=== PATIENT | male | born 1975 | race Caucasian/White ===

== ENCOUNTER 2017-01-13 09:59 | Emergency (ER) | payer BC ==
[2017-01-13 10:19] VITALS: BP 125/73
--- NOTE | 2017-01-13 10:32 | UC ---
Lower Extremity/Ankle HPI - HPI Summary HPI Summary: On Monday he was playing soccer and push off with his right leg got pain and leg ---currently leg is swelling more calf is more tender ankle is bruised and tender - History of Current Complaint Chief Complaint: UCLowerExtremity Stated Complaint: RIGHT LEG/ANKLE COMPLAINT Time Seen by Provider: 01/13/17 10:26 Hx Obtained From: Patient Onset/Duration: Sudden Onset, Lasting Days - 4, Still Present Severity Initially: Moderate Severity Currently: Moderate Pain Intensity: 6 Pain Scale Used: 0-10 Numeric Aggravating Factor(s): Ambulation Alleviating Factor(s): Rest, Ice Able to Bear Weight: Yes - with pain - Allergies/Home Medications Allergies/Adverse Reactions: Allergies Allergy/AdvReac Type Severity Reaction Status Date / Time No Known Allergies Allergy Verified 01/09/16 13:13 Home Medications: Home Medications Ibuprofen TAB* [Advil TAB*] 2 tab PO Q6HR PRN 01/13/17 [History Confirmed ] PMH/Surg Hx/FS Hx/Imm Hx Previously Healthy: Yes Endocrine History Of: Denies: Diabetes, Thyroid Disease Cardiovascular History Of: Denies: Cardiac Disorders, Hypertension Respiratory History Of: Denies: COPD, Asthma GI/ History Of: Denies: Ulcer - Surgical History Surgical History: Yes Surgery Procedure, Year, and Place: wisdom teeth removal 2009, umbilical hernia repair 2010 - Family History Known Family History: Positive: None Family History: no reported cardiovascular issues in family lineage - Social History Occupation: Unemployed Lives: With Family Alcohol Use: Daily Alcohol Amount: 1 drink per day Substance Use Type: Marijuana Smoking Status (MU): Former Smoker Amount Used/How Often: 1 PPD WHEN HE SMOKED. Length of Time of Smoking/Using Tobacco: QUIT 8 YEARS AGO; SMOKED FOR 15 YEARS - Immunization History Most Recent Tetanus Shot: 2011 or 2014 Review of Systems Constitutional: Negative Skin: Bruising - righ calf and ankle Eyes: Negative ENT: Negative Respiratory: Negative Cardiovascular: Negative Gastrointestinal: Negative Genitourinary: Negative Motor: Negative Neurovascular: Negative Musculoskeletal: Calf Tenderness, Edema - right calf, Myalgia Neurological: Negative Psychological: Negative All Other Systems Reviewed And Are Negative: Yes Physical Exam Triage Information Reviewed: Yes Appearance: Well-Appearing, No Pain Distress, Well-Nourished Vital Signs: Initial Vital Signs Temp 98.7 F 01/13/17 10:07 Pulse 60 01/13/17 10:07 Resp 18 01/13/17 10:07 BP 125/73 01/13/17 10:07 Pulse Ox 98 01/13/17 10:07 Vital Signs Reviewed: Yes Eye Exam: Normal Eyes: Positive: Conjunctiva Clear ENT Exam: Normal ENT: Positive: Normal ENT inspection, Hearing grossly normal. Negative: Nasal congestion, Nasal drainage, Trismus, Muffled/hoarse voice Dental Exam: Normal Neck exam: Normal Neck: Positive: Supple, Nontender, No Lymphadenopathy Respiratory Exam: Normal Respiratory: Positive: No respiratory distress, No accessory muscle use Cardiovascular Exam: Normal Cardiovascular: Positive: RRR, Pulses Normal, Brisk Capillary Refill Musculoskeletal Exam: Normal Musculoskeletal: Positive: Strength Limited @ - right lower leg, ROM Limited @ - right ankle, Edema @ - right calf, Other: - steen squeeze test WNL Neurological Exam: Normal Neurological: Positive: Alert Psychological Exam: Normal Skin Exam: Normal Diagnostics - Laboratory Diagnostic Studies Completed/Ordered: ankle x-ray negative, calf, no evidence of dvt, + contusion Lower Extremity Course/Dx - Course Course Of Treatment: nwb, crutches, gel spint, rice, follow with ortho, tylenol , ibuprofen for pain - Differential Dx/Diagnosis Differential Diagnosis/HQI/PQRI: Contusion, DVT, Sprain, Strain Provider Diagnoses: right calf muscle strain Discharge - Discharge Plan Condition: Stable Disposition: HOME Patient Education Materials: Crutch Instructions (ED), Muscle Strain (ED), Non Weight Bearing Activity (ED), Ecchymosis (ED) Referrals: [facility] [place] [facility]ERRAL [Outside] - 3 Days No Primary Care Phys,NOPCP [Medical Doctor] - Toshia Marshall MD [Medical Doctor] - 3 Days
--- NOTE | 2017-01-13 11:00 | RAD ---
INDICATION: Pain and swelling COMPARISON: None TECHNIQUE: AP, lateral, and oblique views were obtained. FINDINGS: The bony structures, joint spaces, and soft tissues are normal for age. IMPRESSION: NEGATIVE EXAMINATION.
--- NOTE | 2017-01-13 11:37 | RAD ---
INDICATION: Calf pain, injury. COMPARISON: There are no prior studies available for comparison. TECHNIQUE: Multiple real-time, color flow and Doppler tracings of the right lower extremity were obtained. FINDINGS: The common femoral, femoral, profunda femoral and popliteal veins all demonstrate normal compressibility, augmentation with compression and phasic response with respiration. The posterior tibial and peroneal veins demonstrate normal compressibility and augmentation with compression. There is a small amount of fluid tracking in the muscles in the posterior medial calf suggesting the possibility of a muscle contusion. IMPRESSION: 1. NO EVIDENCE FOR DEEP VENOUS THROMBOSIS. 2. FINDINGS SUGGESTIVE OF A MUSCLE CONTUSION IN THE POSTERIOR MEDIAL CALF. THIS CAN BE FURTHER EVALUATED WITH AN MRI OF THE LOWER EXTREMITY IF NEEDED.
[2017-01-13] MEDS ORDERED: Ibuprofen TAB* 600 MG PO ONE (11:49)
== END 2017-01-13 12:04 | disposition home or self-care (01) ==
LOC: UCEAST 09:59
DX: S86.911A Strain of unspecified muscle(s) and tendon(s) at lower leg level, right leg, initial encounter (principal); X58.XXXA Exposure to other specified factors, initial encounter; Y93.66 Activity, soccer; Y92.9 Unspecified place or not applicable; F12.90 Cannabis use, unspecified, uncomplicated; Z87.891 Personal history of nicotine dependence
CPT/HCPCS: 99213; A9270-GY; G0463